=== PATIENT | female | born 1990 | race Caucasian/White ===

== ENCOUNTER 2016-11-18 18:40 | Emergency (ER) | payer SELFPAY ==
[2016-11-18 18:59] VITALS: BP 126/71
[2016-11-18] MEDS ORDERED: Penicillin VK TAB* 250 MG PO ONE (19:02)
[2016-11-18] MEDS ORDERED: Acetaminop/Codeine 30 MG TAB* 1 TAB (300 MG/30 MG) PO ONE (19:03)
--- NOTE | 2016-11-18 19:08 | UC ---
Dental HPI - HPI Summary HPI Summary: Patient woke up with swelling of the upper lip, has a broken and infected tooth. denies fever, it is painful. has dentist appointment on 11/24. - History of Current Complaint Chief Complaint: UCDentalProblem Stated Complaint: DENTAL/FACIAL SWELLING Time Seen by Provider: 11/18/16 18:57 Hx Obtained From: Patient Hx Last Menstrual Period: 11/14/16 ?: No Onset/Duration: Sudden Onset, Lasting Hours Severity: Severe Related History: Previous Dental Care on Same Tooth, Swelling - Allergies/Home Medications Allergies/Adverse Reactions: Allergies Allergy/AdvReac Type Severity Reaction Status Date / Time Cephalexin [From Keflex] Allergy Intermediate Hives Verified 11/18/16 18:52 Doxycycline Allergy Intermediate Hives Verified 11/18/16 18:52 Home Medications: Home Medications Ibuprofen TAB* [Advil TAB*] 400 mg PO ONCE 11/18/16 [History Confirmed 11/18/16] PMH/Surg Hx/FS Hx/Imm Hx Previously Healthy: Yes - Surgical History Surgical History: None Surgery Procedure, Year, and Place: ORAL - Family History Known Family History: Positive: Hypertension - Social History Alcohol Use: None Substance Use Type: None Smoking Status (MU): Light Every Day Tobacco Smoker Type: Cigarettes Amount Used/How Often: 1/2 PPD Length of Time of Smoking/Using Tobacco: 9 Years Have You Smoked in the Last Year: Yes Household Exposure Type: Cigarettes Review of Systems Constitutional: Negative Skin: Other - swollen lip Eyes: Negative ENT: Dental Pain, Sinus Congestion Respiratory: Negative Cardiovascular: Negative Gastrointestinal: Negative Genitourinary: Negative Motor: Negative Neurovascular: Negative Musculoskeletal: Negative Neurological: Negative Psychological: Negative All Other Systems Reviewed And Are Negative: Yes Physical Exam Triage Information Reviewed: Yes Appearance: Ill-Appearing, Pain Distress, Obese Vital Signs: Initial Vital Signs Temp 98.3 F 11/18/16 18:48 Pulse 87 11/18/16 18:48 Resp 18 11/18/16 18:48 BP 126/71 11/18/16 18:48 Pulse Ox 96 11/18/16 18:48 Vital Signs Reviewed: Yes Eye Exam: Normal ENT: Positive: Hearing grossly normal, Pharynx normal, Nasal congestion, TMs normal Dental: Positive: Gross Decay/Caries @, Dental Fracture @, Cellulitis @ Neck exam: Normal Neck: Positive: Supple, Nontender, No Lymphadenopathy Respiratory Exam: Normal Respiratory: Positive: Chest non-tender, Lungs clear, Normal breath sounds Cardiovascular Exam: Normal Cardiovascular: Positive: RRR, No Murmur, Pulses Normal Abdominal Exam: Normal Abdomen Description: Positive: Nontender, No Organomegaly, Soft Bowel Sounds: Positive: Present Musculoskeletal Exam: Normal Musculoskeletal: Positive: Strength Intact, ROM Intact, No Edema Neurological Exam: Normal Neurological: Positive: Alert, Muscle Tone Normal Psychological Exam: Normal Skin Exam: Normal Dental Complaint Course/Dx - Course Course Of Treatment: hx obtained, exam performed ,meds reviewed, abx and pain meds given, follow up as needed. - Differential Dx/Diagnosis Differential Diagnosis/Dx: Dental Caries, Fractured Tooth, Maxillary Trauma Provider Diagnoses: dental abcess,. fractured tooth. sinus pain Discharge - Discharge Plan Condition: Stable Disposition: HOME Prescriptions: Penicillin VK TAB* [Penicillin VK 250 mg Tab*] 500 mg PO QID #28 tab Patient Education Materials: Dental Abscess (ED) Additional Instructions: 1. take the medication as prescribed. 2. Use the tylneol with codeine at bedtime. 3. continue with the ibuprofen 4. gargel with salt water multiple times a day.
== END 2016-11-18 19:19 | disposition home or self-care (01) ==
LOC: UCCORT 18:40
DX: K04.7 Periapical abscess without sinus (principal); J32.9 Chronic sinusitis, unspecified; K03.81 Cracked tooth; F17.210 Nicotine dependence, cigarettes, uncomplicated; Z88.1 Allergy status to other antibiotic agents
CPT/HCPCS: 99212; A9270-GY; G0463

== ENCOUNTER 2017-07-08 19:35 | Emergency (ER) | payer OTHER ==
[2017-07-08] MEDS ORDERED: Naproxen TAB* 250 MG PO ONE (19:59)
[2017-07-08] MEDS ORDERED: Amoxicillin/Clavulanate TAB* 875 MG PO ONE (20:00)
[2017-07-08 20:01] VITALS: BP 147/83
--- NOTE | 2017-07-08 20:06 | UC ---
Dental HPI - HPI Summary HPI Summary: pt notes a hx of bad teeth. she has been seeing [facility] and is to have multiple extractions. tamiko, she broke a left upper back tooth and notes pain since with some mild swelling as well. no fever - History of Current Complaint Chief Complaint: UCDentalProblem Stated Complaint: DENTAL COMPLAINT Time Seen by Provider: 07/08/17 19:53 Hx Obtained From: Patient Hx Last Menstrual Period: 11/10/14 ?: No Onset/Duration: Sudden Onset Pain Intensity: 7 Aggravating Factor(s): Chewing Alleviating Factor(s): Nothing - Allergies/Home Medications Allergies/Adverse Reactions: Allergies Allergy/AdvReac Type Severity Reaction Status Date / Time cephalexin [From Keflex] Allergy Hives Verified 07/08/17 19:52 doxycycline Allergy Hives Verified 07/08/17 19:52 PMH/Surg Hx/FS Hx/Imm Hx - Additional Past Medical History Additional PMH: Lymphedema - Surgical History Surgical History: None Surgery Procedure, Year, and Place: ORAL - Family History Known Family History: Positive: Hypertension - Social History Lives: With Family Alcohol Use: None Substance Use Type: None Smoking Status (MU): Heavy Every Day Tobacco Smoker Type: Cigarettes Amount Used/How Often: 1 PPD Length of Time of Smoking/Using Tobacco: 9 Years Have You Smoked in the Last Year: Yes Household Exposure Type: Cigarettes Review of Systems Constitutional: Negative Skin: Negative Eyes: Negative ENT: Dental Pain Respiratory: Negative Cardiovascular: Negative Gastrointestinal: Negative Genitourinary: Negative Motor: Negative Neurovascular: Negative Musculoskeletal: Negative Neurological: Negative Psychological: Negative Is Patient Immunocompromised?: No All Other Systems Reviewed And Are Negative: Yes Physical Exam Triage Information Reviewed: Yes Appearance: Well-Appearing Vital Signs: Initial Vital Signs Temp 98.5 F 07/08/17 19:52 Pulse 99 07/08/17 19:52 Resp 20 07/08/17 19:52 BP 147/83 07/08/17 19:52 Pulse Ox 95 07/08/17 19:52 Vital Signs Reviewed: Yes Eyes: Positive: Conjunctiva Clear ENT: Positive: Normal ENT inspection Dental: Positive: Gross Decay/Caries @ - multiple teeth. the L upper anterior molar is very tender and has swelling to the gum but is not fluctuant.. Negative: Abscess @ Neck: Positive: Supple, Nontender, No Lymphadenopathy Respiratory: Positive: Lungs clear, Normal breath sounds Cardiovascular: Positive: RRR, No Murmur Abdomen Description: Positive: Nontender, No Organomegaly, Soft Bowel Sounds: Positive: Present Musculoskeletal: Positive: ROM Intact, Edema @ Neurological: Positive: Alert Psychological: Positive: Age Appropriate Behavior Skin Exam: Normal Dental Complaint Course/Dx - Course Course Of Treatment: dental caries, pain and infection. will tx nsaid and augmentin. pt notes keflex allergy but has taken pcn class since then with no reation. - Differential Dx/Diagnosis Provider Diagnoses: Dental caries. Dental infection Discharge - Discharge Plan Condition: Stable Disposition: HOME Prescriptions: Amoxicillin/Clavulanate TAB* [Augmentin TAB 875*] 875 mg PO BID #20 tab Naproxen [Naprosyn] 500 mg PO BID #14 tablet Patient Education Materials: Toothache (ED), Dental Abscess (ED) Referrals: Cat Sepulveda MD [Primary Care Provider] - If Needed Additional Instructions: FOLLOW UP WITH YOUR DENTIST AT [facility], NEXT AVAILABLE APPOINTMENT.
== END 2017-07-08 20:17 | disposition home or self-care (01) ==
LOC: UCCORT 19:35
DX: K02.9 Dental caries, unspecified (principal); K04.7 Periapical abscess without sinus; Z88.1 Allergy status to other antibiotic agents; F17.210 Nicotine dependence, cigarettes, uncomplicated
CPT/HCPCS: 99212; A9270-GY; G0463

== ENCOUNTER 2019-01-24 18:14 | Emergency (ER) | payer OTHER ==
[2019-01-24 18:21] VITALS: BP 146/92
--- NOTE | 2019-01-24 18:28 | UC ---
Abdominal Pain Female HPI - HPI Summary HPI Summary: RLQ ABD PAIN LAST COUPLE DAYS; PROGRESSIVELY GETTING WORSE TODAY. DENIES N/V/D. NO MEASURED FEVER. SAW PCP LAST SUNDAY FOR SORE THROAT; STREP TEST AND THROAT CULTURE NEGATIVE. NO MEDS TAKEN FOR STOMACH PAIN. CURRENTLY ON COUMADIN. STILL HAS APPENDIX. Pain increases with movement. - History of Current Complaint Chief Complaint: UCGI Stated Complaint: RIGHT SIDE ABDOMINAL PAIN Time Seen by Provider: 01/24/19 18:23 Hx Obtained From: Patient Hx Last Menstrual Period: 01/23/19 ?: No Onset/Duration: Gradual Onset, Lasting Days Severity Initially: Mild Severity Currently: Severe Pain Intensity: 7 Location: Discrete At: RLQ Radiates: No Aggravating Factor(s): Movement, Deep Breaths Allergies/Adverse Reactions: Allergies Allergy/AdvReac Type Severity Reaction Status Date / Time bupropion Allergy Rash Verified 01/24/19 18:17 cephalexin [From Keflex] Allergy Hives Verified 01/24/19 18:17 doxycycline Allergy Hives Verified 01/24/19 18:17 Home Medications: Home Medications Furosemide TAB* [Lasix TAB*] 40 mg PO BID 01/24/19 [History Confirmed 01/24/19] Iron 1 tab DAILY 01/24/19 [History Confirmed 01/24/19] Warfarin TAB(*) [Coumadin TAB(*)] 1 tab EVERY OTHER DAY 01/24/19 [History Confirmed 01/24/19] PMH/Surg Hx/FS Hx/Imm Hx Previously Healthy: Yes - Surgical History Surgical History: Yes Surgery Procedure, Year, and Place: ORAL. COLONSCOPY; POLYPS REMOVED CHILD - Family History Known Family History: Positive: Hypertension - Social History Alcohol Use: Rare Substance Use Type: None Smoking Status (MU): Heavy Every Day Tobacco Smoker Type: Cigarettes Amount Used/How Often: 1 PPD Length of Time of Smoking/Using Tobacco: 9 Years Have You Smoked in the Last Year: Yes Household Exposure Type: Cigarettes Review of Systems All Other Systems Reviewed And Are Negative: Yes Gastrointestinal: Positive: Abdominal Pain, Nausea Is Patient Immunocompromised?: No Physical Exam Triage Information Reviewed: Yes Appearance: Ill-Appearing, Pain Distress, Obese Vital Signs: Initial Vital Signs Temp 99 F 01/24/19 18:17 Pulse 84 01/24/19 18:17 Resp 18 01/24/19 18:17 BP 146/92 01/24/19 18:17 Pulse Ox 99 01/24/19 18:17 Vital Signs Reviewed: Yes Eye Exam: Normal ENT Exam: Normal Dental Exam: Normal Neck exam: Normal Respiratory Exam: Normal Cardiovascular Exam: Normal Abdomen Description: Positive: CVA Tenderness (R) - neg, CVA Tenderness (L) - neg, Guarding, Peritoneal Signs - pain increases with prone position, standing up straight and walking Bowel Sounds: Positive: Present Musculoskeletal Exam: Normal Neurological Exam: Normal Psychological Exam: Normal Skin Exam: Normal Abd Pain Female Course/Dx - Course Course Of Treatment: hx obtained, exam performed ,meds reviewed, discussed reporting to ER to rule out appendicitis. - Differential Dx/Diagnosis Provider Diagnosis: Acute abdominal pain in right lower quadrant Discharge ED - Sign-Out/Discharge Documenting (check all that apply): Patient Departure All imaging exams completed and their final reports reviewed: No Studies - Discharge Plan Condition: Stable Disposition: HOME Patient Education Materials: Acute Abdominal Pain (ED) Referrals: Sha Tobias DO [Primary Care Provider] - Additional Instructions: 1. report for higher level of care due to acute abdominal pain. - Billing Disposition and Condition Condition: STABLE Disposition: Home
--- OUTSIDE RECORDS SUMMARY | 2019-01-24 18:36 | XMS REPORT | Summary of Care ---
:1990 Author Organization [facility] Address [address] [place] [address] Care Team Providers Name Role Phone Sha Tobias Primary Care Provider Reason for Visit Reason Comments URI incresed sore throat and cough and feels like chest tight and someone sitting on;denies fevers s/s started yesturday Encounter Details Date Type Department Care Team Description 01/16/2019 Office Visit [facility] Sha Tobias, Exacerbation of asthma, unspecified asthma severity, unspecified whether persistent (Primary Dx); Practice [address] Sore throat [address] [place] [address] [place] [address] [phone] Allergies Active Allergy Reactions Severity Noted Date Comments Doxycycline Hives 01/31/2016 Keflex Hives 01/31/2016 Bupropion Rash Low 08/08/2018 Small red itchy rash bilat hands documented as of this encounter (statuses as of 01/16/2019) Medications Medication Sig Dispensed Refills Start Date End Date Status albuterol HFA Take 2 Puffs by 1 Inhaler 5 02/21/2018 Active (VENTOLIN) 108 (90 inhalation EVERY Base) MCG/ACT FOUR HOURS Inhalation Aero Soln NEEDED (wheezing). Acetaminophen (ACETAMIN Take by mouth. 0 Active PO) Polyethylene Glycol Take by mouth 0 Active 3350 (MIRALAX PO) NEEDED. Sennosides (SENNA) 8.6 Take by mouth 0 Active MG Oral Cap NEEDED. warfarin (COUMADIN) 10 Take 1 Tab by 90 Tab 2 06/20/2018 Active MG Oral TabIndications: mouth DAILY. As Pulmonary embolus, directed right (HCC) ferrous sulfate 325 (65 Take 1 Tab by 60 Tab 1 09/26/2018 Active Fe) MG Oral Tab mouth DAILY. furosemide (LASIX) 40 Take 1 Tab by 60 Tab 1 09/26/2018 Active MG Oral Tab mouth TWICE DAILY. nicotine transdermal Place 1 Patch 42 Patch 0 10/22/2018 Active patch-daily (NICODERM) onto skin DAILY. 21 MG/24HR Transdermal PATCH 24 HRIndications: Smoking trying to quit Cholecalciferol Take by mouth. 0 Active (VITAMIN D PO) mupirocin (BACTROBAN) 2 Twice daily on 1 Tube 0 12/18/2018 Active % Apply externally affected back of OintmentIndications: neck area for 1 Cellulitis, unspecified week cellulitis site predniSONE (DELTASONE) Take 1 Tab by 18 Tab 0 01/16/2019 Active 20 MG Oral mouth TabIndications: DIRECTED. 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 03/05/2018 Overview: Managed by: patient to establish with [facility] 03/06/18 Referring Provider: Ashu Indication: PE, dx 02/22/18 Target Range: 2.0-3.0 Duration: not indicated Initial Referral: 03/05/18 Initial ACS Ordes: 03/05/18 Polycystic ovarian disease Benign essential hypertension Asthma Pulmonary embolism Overview: on coumadin Lymphedema documented as of this encounter (statuses as of 01/16/2019) Immunizations Name Administration Dates Next Due Influenza (IM) Preservative Free 03/01/2017, 01/31/2016 documented as of this encounter Social History Tobacco Use Types Packs/Day Years Used Date Current Every Day Smoker Cigarettes 0.3 Smokeless Tobacco: Never Used Alcohol Use Drinks/Week oz/Week Comments No 0 Standard drinks or equivalent 0.0 Sex Assigned at Date Recorded Not on file Job Start Date Occupation Industry Not on file Not on file Not on file Travel History Travel Start Travel End No recent travel history available. documented as of this encounter Last Filed Vital Signs Vital Sign Reading Time Taken Comments Blood Pressure 138/64 01/16/2019 10:49 AM EDT Pulse 104 01/16/2019 10:49 AM EDT Temperature 37.8 01/16/2019 10:49 AM C (100 EDT F) Respiratory Rate - - Oxygen Saturation 95% 01/16/2019 10:49 AM EDT Inhaled Oxygen Concentration - - Weight 214.8 kg (473 lb 9.6 oz) 01/16/2019 10:49 AM EDT Height 171.5 cm (5' 7.5") 01/16/2019 10:49 AM EDT Body Mass Index 73.08 01/16/2019 10:49 AM EDT documented in this encounter Patient Instructions Patient InstructionsSha Tobias DO - 01/16/2019 10:40 AM EDTPrednisone 20 mg tablets: 3 tabs a day for 3 days then 2 tabs a day for 3 days then 1 tab a day for 3 days Sore throat: salt water gargle and honey Will send for culture Keep using rescue inhaler for cough, wheeze and chest tightness or shortness of breath documented in this encounter Progress Notes Sha Tobias DO - 01/16/2019 10:40 AM EDT PATIENT: Beth Arciniega : 1990 DATE OF SERVICE: 01/16/2019 CHIEF COMPLAINT: Chief Complaint Patient presents with URI incresed sore throat and cough and feels like chest tight and someone sitting on;denies fevers s/sstarted yesturday Subjective HISTORY OF PRESENT ILLNESS: Beth Arciniega is a 28-y.o. female. HPI Yesterday sore throat and then cough (dry), wheezing and chest tightness No fevers No chills Has asthma hx Albuterol helped that she tried for wheeze Past Medical History: Diagnosis Date Asthma Benign essential hypertension Lymphedema Morbid obesity (HCC) Polycystic ovarian disease Pulmonary embolism (HCC) on coumadin Family History Adopted: Yes Current Outpatient Medications Medication Sig Acetaminophen (ACETAMIN PO) Take by mouth. albuterol HFA (VENTOLIN) 108 (90 Base) MCG/ACT Inhalation Aero Soln Take 2 Puffs by inhalation EVERY FOUR HOURS NEEDED (wheezing). Cholecalciferol (VITAMIN D PO) Take by mouth. ferrous sulfate 325 (65 Fe) MG Oral Tab Take 1 Tab by mouth DAILY. furosemide (LASIX) 40 MG Oral Tab Take 1 Tab by mouth TWICE DAILY. mupirocin (BACTROBAN) 2 % Apply externally Ointment Twice daily on affected back of neck areafor 1 week nicotine transdermal patch-daily (NICODERM) 21 MG/24HR Transdermal PATCH [address] 1 Patch onto skin DAILY. Polyethylene Glycol 3350 (MIRALAX PO) Take by mouth NEEDED. predniSONE (DELTASONE) 20 MG Oral Tab Take 1 Tab by mouth DIRECTED. 3 tabs a day for 3 days then 2 tabs a day for 3 days then 1 tab a day for 3 days Sennosides (SENNA) 8.6 MG Oral Cap Take by mouth NEEDED. warfarin (COUMADIN) 10 MG Oral Tab Take 1 Tab by mouth DAILY. As directed No current facility-administered medications for this visit. Allergies Allergen Reactions Doxycycline Hives Keflex Hives Wellbutrin [Bupropion] Rash Small red itchy rash bilat hands Social History Socioeconomic History Marital status: Single Spouse name: Not on file Number of children: Not on file Years of education: Not on file Highest education level: Not on file Occupational History Not on file Social Needs Financial resource strain: Not on file Food insecurity: Worry: Not on file Inability: Not on file Transportation needs: Medical: Not on file Non-medical: Not on file Tobacco Use Smoking status: Current Every Day Smoker Packs/day: 0.30 Types: Cigarettes Smokeless tobacco: Never Used Substance and Sexual Activity Alcohol use: No Alcohol/week: 0.0 standard drinks Drug use: No Sexual activity: Yes Partners: Male Lifestyle Physical activity: Days per week: Not on file Minutes per session: Not on file Stress: Not on file Relationships Social connections: Talks on phone: Not on file Gets together: Not on file Attends protestant service: Not on file Active member of club or organization: Not on file Attends meetings of clubs or organizations: Not on file Relationship status: Not on file Intimate partner violence: Fear of current or ex partner: Not on file Emotionally abused: Not on file Physically abused: Not on file Forced sexual activity: Not on file Other Topics Concern Back Care Not Asked Bike Helmet Not Asked Blood Transfusions No Caffeine Concern Not Asked Exercise No Hobby Hazards Not Asked International Travel Not Asked Service Not Asked Occupational Exposure Not Asked Seat Belt Not Asked Self-Exams Not Asked Sleep Concern Not Asked Special Diet Not Asked Stress Concern Not Asked Weight Concern Not Asked Social History Narrative Not working currently REVIEW OF SYSTEMS: Review of Systems Constitutional: Negative for diaphoresis. Cardiovascular: Negative for chest pain. Neurological: Negative for headaches. Objective PHYSICAL EXAM: VITALS: BP 138/64 (BP Location: Left arm, Patient Position: Sitting) | Pulse 104 | Temp 100 F(37.8 C) | Ht 5' 7.5" (1.715 m) | Wt (!) 473 lb 9.6 oz (214.8 kg) | SpO2 95% | BMI 73.08 kg/m Body mass index is 73.08 kg/m . Physical Exam Constitutional: Appearance: Normal appearance. She is not toxic-appearing or diaphoretic. HENT: Head: Normocephalic and atraumatic. Right Ear: Tympanic membrane normal. Left Ear: Tympanic membrane normal. Mouth/Throat: Comments: Erythemas of pharynx Eyes: General: No scleral icterus. Right eye: No discharge. Left eye: No discharge. Conjunctiva/sclera: Conjunctivae normal. Neck: Musculoskeletal: Normal range of motion and neck supple. Cardiovascular: Rate and Rhythm: Normal rate and regular rhythm. Pulmonary: Effort: Pulmonary effort is normal. Breath sounds: Wheezing (expiratory) present. No rales. Neurological: Mental Status: She is alert. ASSESSMENT / IMPRESSION: ICD-9-CM ICD-10-CM 1. Exacerbation of asthma, unspecified asthma severity, unspecified whether persistent 493.92 J45.901 predniSONE (DELTASONE) 20 MG Oral Tab 2. Sore throat 462 J02.9 STREP A ANTIGEN (AMB POCT) THROAT STREP SCREEN CULTURE THROAT STREP SCREEN CULTURE Plan Rapid strep negative. Will send for culture to make sure not missing step throat Asthma flare for certain. Likely triggered by infection pharyngitis Patient Instructions Prednisone 20 mg tablets: 3 tabs a day for 3 days then 2 tabs a day for 3 days then 1 tab a day for 3 days Sore throat: salt water gargle and honey Will send for culture Keep using rescue inhaler for cough, wheeze and chest tightness or shortness of breath Author: Sha Tobias DO 01/16/2019 12:56 documented in this encounter Plan of Treatment Date Type Specialty Care Team Description 01/29/2019 AntiCoag Anticoagulation Name Type Priority Associated Diagnoses Date/Time THROAT STREP SCREEN Lab Routine Sore throat 01/16/2019 11:15 AM EDT CULTURE Name Type Priority Associated Diagnoses Order Schedule THROAT STREP SCREEN Lab Routine Sore throat 1 Occurrences starting CULTURE 01/16/2019 until 07/15/2019 Health Maintenance Due Date Last Done Comments PNEUMOCOCCAL 0-64 YRS (1 of 1 08/03/1995 - PPSV23) INFLUENZA VACCINE (#1) 2018 03/01/2017, 01/31/2016 DEPRESSION SCREENING 10/23/2019 10/22/2018 PAP SMEAR 03/29/2021 03/29/2018 HPV IMMUNIZATION SERIES Aged Out No longer eligible based on patient's age to complete this topic MENINGOCOCCAL VACCINE IMM Aged Out No longer eligible based on patient's age to complete this topic documented as of this encounter Goals Goal Patient Goal Associated Recent Patient-Stated? Author Type Problems Progress Blood Pressure Blood Pressure 138/64 No Randy, < 140/90 (01/16/2019 Helen, 10:49 AM EDT) JUAN J Note: This is an individualized treatment (blood pressure) goal for Beth Arciniega: Displayed above (on the left) is your goal for blood pressure control. Your most recent blood pressure is also shown above, on the right. You should try to achieve blood pressures that are lower than your goal listed above (on the left). Weight increase vs. 18 mo min CHF 0 (01/16/2019 10:49 AM EDT) No Sha Tobias DO (lbs) < 5 Note: This is an individualized treatment (congestive heart failure, CHF) goal for Beth Arciniega: Displayed above (on the right) is how many pounds you are in excess of your lowest weight over the past 18 months. Note that lower numbers are better. Excessive weight gain often indicates fluid reten tion and worsening heart failure. You should contact your doctor immediately if the above number is too high (above your goal, the number on the left). Weight loss vs. 18 mo Lifestyle 50.4 (01/16/2019 10:49 AM No Helen Padilla PA-C max (lbs) >= 10 EDT) Note: This is an individualized lifestyle goal for Beth Arciniega: Your body mass index (BMI) is more than 30. You should lose weight. A reasonable starting goal is to lose 10 pounds. Displayed above is how many pounds you have lost thus far towards your 10 pound weight loss goal. Consume a [id number] diet Lifestyle No Sha Tobias DO Note: This is an individualized lifestyle goal for Beth Arciniega: Please do not add additional salt to your food. Additional salt may lead to fluid retention and worsen your congestive heart failure. Take all prescribed medications as Self-management No Helen Padilla PA-C directed Note: This is an individualized self-management goal for Beth Arciniega: Please take all prescribed medications as directed. 1. Do not skip doses. If you cannot afford your medications, talk with your doctor. 2. Use a pill reminder system such as a pill box if needed. Your pharmacist can help you with this. 3. Contact your Pharmacy 5 days before your medication runs out. If you cannot take your medications for any reasons, talk with your doctor. 4. Please bring all of your medication bottles and inhalers (or a list of all your medications/inhalers) with you to every visit. Potential barriers to meeting all of your care plan goals will continue to be addressed on an ongoing basis. Check your weight daily Self-management No Sha Tobias DO Note: This is an individualized self-management goal for Beth Arciniega: Please check your weight daily. Refer to the accompanying CHF treatment goal and call your doctor immediately for further instructions on how to respond to unexpected weight gain. documented as of this encounter Procedures Procedure Name Priority Date/Time Associated Diagnosis Comments STREP A ANTIGEN Routine 01/16/2019 11:15 AM Sore throat Results for this (AMB POCT) EDT procedure are in the results section. documented in this encounter Results STREP A ANTIGEN (AMB POCT) (01/16/2019 11:15 AM EDT) Strep A Antigen Negative Negative [facility] [place] (POCT) POCT Control Line Present Present [facility] POCT Strep A Antigen Yes, Sent for [facility] Confirm (POCT) Confirmation POCT Lot Number [id number] [facility] POCT Expiration Date 08/2019 [facility] POCT Specimen Performing Organization Address City/State/[place] Phone Number [facility] [address] [place] [address] documented in this encounter Visit Diagnoses Diagnosis Exacerbation of asthma, unspecified asthma severity, unspecified whether persistent - Primary Sore throat Acute pharyngitis documented in this encounter Insurance Payer Benefit Plan / Subscriber ID Effective Dates Phone Address Type Group [facility] xxxxxxxxxxx 2018-Present [employer] Guarantor Name Account Type Relation to Date of Phone Billing Patient Address Beth Arciniega Personal/Family 1990 [address] [phone] [place], [place] (Work) [address] documented as of this encounter
--- OUTSIDE RECORDS SUMMARY | 2019-01-24 18:36 | XMS REPORT | Continuity of Care Document ---
:1990 External Reference #:[id number] Author Name Howard Levy (transmitted by agent of provider Shiela Burger) Address [address], [place] [address] Care Team Providers Name Role Phone Sha Tobias D.O. - Family Medicine Care Team Information Log Grader [phone] Problems Active Problems Provider Date Disturbance in sleep behavior Hansa Michaud MD Onset: 06/02/2015 Morbid obesity Hansa Michaud MD Onset: 06/02/2015 Tobacco user Hansa Michaud MD Onset: 06/02/2015 Social History Type Date Description Comments Sex Unknown Tobacco Use Start: Unknown Light tobacco smoker (10 or fewer cigarettes/day) Smoking Status Reviewed: 01/03/19 Light tobacco smoker (10 or fewer cigarettes/day) ETOH Use Denies alcohol use Tobacco Use Start: Unknown Patient is a current 5-6/day , working smoker, smokes every on quitting day Recreational Drug Use Denies Drug Use Exercise Type/Frequency Exercises sporadically Allergies, Adverse Reactions, Alerts Active Allergies Reaction Severity Comments Date Keflex 06/02/2015 Doxycycline 06/02/2015 Bupropion Hives 01/03/2019 Inactive Allergies NKDA 06/02/2015 Medications Active Medications SIG Qnty Indications Ordering Provider Date Warfarin Sodium 1 tab by mouth 30tabs Unknown 10mg every day Tablets Iron High-Potency 1 by mouth 2 Unknown 325mg times a day Tablets Furosemide 1 by mouth 30tabs Unknown 40mg Tablets twice a day Senna-Lax 1 by mouth as Unknown 8.6mg Tablets needed Mirapex as needed Unknown Albuterol Sulfate HFA 2 puffs every 4 Unknown hours as needed 108(90Base) mcg/Act Aerosol Acetaminophen PM Extra as needed Unknown Strength Bupropion Hydrochloride 1 by mouth Unknown ER (XL) every day 150mg Tablets ER 24HR Vitamin D 1 by mouth Unknown 2000Unit Capsules every day Nicotine Step 1 1 patch to dry Unknown 21mg/24HR skin every day Patches 24HR Medications Administered in Office Medication SIG Qnty Indications Ordering Provider Date Records Fee Hanas Michaud MD 11/18/2018 Injection Records Fee Hansa Michaud MD 10/14/2018 Injection Immunizations CPT Code Status Date Vaccine Lot # [id number] Given 06/02/2015 Fluvirin Im 3Yrs And Older Vital Signs Date Vital Result Comment 01/03/2019 12:45pm Height 68 inches 5'8" Weight 482.00 lb Heart Rate 76 /min BP Systolic 139 mmHg BP Diastolic 81 mmHg O2 % BldC Oximetry 98 % BMI (Body Mass Index) 73.3 kg/m2 Last Menstrual Period [id number] 07/29/2018 10:48am Height 68 inches 5'8" Weight 490.19 lb Heart Rate 82 /min BP Systolic Sitting 122 mmHg large adult cuff left wrist BP Diastolic Sitting 90 mmHg large adult cuff left wrist O2 % BldC Oximetry 94 % BMI (Body Mass Index) 74.5 kg/m2 Results Description No Information Available Procedures Date Code Description Status 09/05/2018 12699 Polysomnography Sleep Staging 4+ Parameters W/Cpap Completed 07/09/2018 43128 Polysomnography Sleep Staging 4+ Parameters W/Cpap Completed Medical Devices Description No Information Available Encounters Type Date Location Provider Dx Diagnosis Office Visit 07/29/2018 [facility] Annabelle Goff, G47.33 Obstructive sleep 11:[facility], RN, STAGE DIRECTOR-BC apnea (adult) [employer] (pediatric) R09.02 Hypoxemia E66.2 Morbid (severe) obesity with alveolar hypoventilation Z68.45 Body mass index (BMI) 70 or greater, adult F17.210 Nicotine dependence, cigarettes, uncomplicated Assessments Date Code Description Provider 01/03/2019 N92.1 Excessive and frequent menstruation ENID Levy-Cde with irregular cycle 01/03/2019 E66.01 Morbid (severe) obesity due to Howard Levy excess calories 09/05/2018 G47.33 Obstructive sleep apnea (adult) Hansa Michaud MD (pediatric) 07/29/2018 G47.33 Obstructive sleep apnea (adult) Annabelle Goff DNP, RN, (pediatric) [facility] 07/29/2018 R09.02 Hypoxemia Annabelle Goff DNP, RN, [facility]- 07/29/2018 E66.2 Morbid (severe) obesity with Annabelle Goff DNP RN, alveolar hypoventilation [facility]- 07/29/2018 Z68.45 Body mass index (BMI) 70 or greater, Annabelle Goff DNP , RN, adult [facility]- 07/29/2018 F17.210 Nicotine dependence, cigarettes, Annabelle Goff DNP RN , uncomplicated [facility]- 07/09/2018 G47.33 Obstructive sleep apnea (adult) Hansa Michaud MD (pediatric) Plan of Treatment Future Appointment(s):01/20/2019 1:30 pm - Howard Levy at [facility]02/05/2019 2:00 pm - Annabelle Goff DNP RN, [facility]- at [facility]01/03/2019 - Hima LevyeN92.1 Excessive and frequent menstruation with irregular expfqT74.01 Morbid (severe) obesity due to excess calories Functional Status Description No Information Available Mental Status Description No Information Available Referrals Description No Information Available
--- OUTSIDE RECORDS SUMMARY | 2019-01-24 18:36 | XMS REPORT | Continuity of Care Document ---
:1990 External Reference #:[id number] Author Name Celine Naranjo MD (transmitted by agent of provider Carly Chavez) Address [address] [place] [address] Care Team Providers Name Role Phone Kay Silver - Internal Care Team Information Individual Small Group Instructor Medicine Sha Tobias MD Care Team Information Individual Small Group Instructor [phone] Problems Description No Information Available Social History Type Date Description Comments Sex Unknown Cigarette Use Current Cigarette Does not smoke Smoker while wearing patch. ETOH Use Denies alcohol use Recreational Drug Use Denies Drug Use Tobacco Use Start: Unknown Patient is a current smoker, smokes some days Smoking Status Reviewed: 12/18/18 Patient is a current smoker, smokes some days Exercise Type/Frequency Exercises sporadically Seat Belt/Car Seat Always uses seat belt Allergies, Adverse Reactions, Alerts Active Allergies Reaction Severity Comments Date Keflex 12/18/2018 Doxycycline 12/18/2018 Bupropion 12/18/2018 Medications Active Medications SIG Qnty Indications Ordering Date Provider Warfarin Sodium take 1 tablet by Unknown 1mg mouth daily or as Tablets directed Iron 1 by mouth every day Unknown 325(65Fe) mg Tablets Furosemide take one tablet by Unknown 20mg Tablets mouth every day if needed for leg swelling Vitamin D3 take one tablet by Unknown 1000Unit mouth daily. Capsules Nicotine 1 patch per day x 4 Unknown 7mg/24HR weeks Patches 24HR Acetaminophen 1-2 by mouth every 4 Unknown 500mg hours as needed for Tablets pain or fever Senna-Lax take two tablets by Unknown 8.6mg Tablets mouth twice a day as needed for constipation Miralax 17 gm every day Unknown 3350NF Powder mixed w/ 8 oz water/juice Albuterol Sulfate 1 vial via nebulizer Unknown 4 times daily as (2.5mg/3ML) 0.083% needed Nebulizer Immunizations Description No Information Available Vital Signs Date Vital Result Comment 12/18/2018 11:32am BP Systolic 164 mmHg BP Diastolic 104 mmHg Height 65.5 inches 5'5.50" Weight 482.00 lb BMI (Body Mass Index) 79.0 kg/m2 Last Menstrual Period [id number] Results Description No Information Available Procedures Date Code Description Status 04/23/2005 90176142 Colonoscopy Completed Medical Devices Description No Information Available Encounters Description No Information Available Assessments Description No Information Available Plan of Treatment No Information Available Functional Status Description No Information Available Mental Status Description No Information Available Referrals Description No Information Available
--- OUTSIDE RECORDS SUMMARY | 2019-01-24 18:36 | XMS REPORT | Continuity of Care Document ---
:1990 External Reference #:[id number] Author Name Celine Naranjo MD Address [address] [place] [address] Care Team Providers Name Role Phone Kay Silver - Internal Care Team Information Film Process Operator Medicine Sha Tobias MD Care Team Information Film Process Operator [phone] Problems Description No Information Available Social History [...] Mass Index) 79.0 kg/m2 Last Menstrual Period [id number] 0 Results Description No Information Available Procedures Date Code Description Status 04/23/2005 [id number] Colonoscopy Completed Medical Devices Description No Information Available Encounters Type Date Location Provider Dx Diagnosis Office Visit 12/18/2018 [facility] Celine Naranjo MD N93.9 Abnormal uterine and 11:30a vaginal bleeding, unspecified Z86.711 Personal history of pulmonary embolism Z68.45 Body mass index (BMI) 70 or greater, adult Assessments Date Code Description Provider 12/18/2018 N93.9 Abnormal uterine and vaginal bleeding, Celine Naranjo MD unspecified 12/18/2018 Z86.711 Personal history of pulmonary embolism Celine Naranjo MD 12/18/2018 Z68.45 Body mass index (BMI) 70 or greater, adult Celine Naranjo MD Plan of Treatment No Information Available Functional Status Description No Information Available Mental Status Description No Information Available Referrals Description No Information Available
--- OUTSIDE RECORDS SUMMARY | 2019-01-24 18:36 | XMS REPORT | Summary of Care ---
:1990 Author Organization [facility] Address [address] [place] [address] Care Team Providers Name Role Phone Sha Tobias DO Primary Care Provider Reason for Visit Reason Comments Derm Problem hx of scratch on back of neck area couple mnths ago, starps from cpap have rubbed on it and reopened area with some drainage per patient Assessment For Bariatric Surgery need letter of support of bariatric surgery Encounter Details Date Type Department Care Team Description 12/18/2018 Office Visit [facility] Sha Tobias DO Cellulitis, Practice [address] unspecified cellulitis [address] [place] [address] site (Primary Dx) [place] [address] [phone] Allergies Active Allergy Reactions Severity Noted Date Comments Doxycycline Hives 01/31/2016 Keflex Hives 01/31/2016 Bupropion Rash Low 08/08/2018 Small red itchy rash bilat hands documented as of this encounter (statuses as of 12/18/2018) Medications Medication Sig Dispensed Refills Start Date [...] for 1 Cellulitis, unspecified week cellulitis site Clindamycin HCl 300 MG Take 1 Cap by 15 Cap 0 12/18/2018 Active Oral CapIndications: mouth THREE TIMES Cellulitis, unspecified DAILY. 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 03/05/2018 Overview: Managed by: patient to establish with [facility] 03/06/18 Referring Provider: Ashu Indication: PE, dx 02/22/18 Target Range: 2.0-3.0 Duration: not indicated Initial Referral: 03/05/18 Initial [facility] Ordes: 03/05/18 Polycystic ovarian disease Benign essential hypertension Asthma Pulmonary embolism Overview: on coumadin Lymphedema documented as of this encounter (statuses as of 12/18/2018) Immunizations Name Administration Dates Next Due Influenza [...] Sign Reading Time Taken Comments Blood Pressure 134/68 12/18/2018 2:46 PM EDT Pulse 82 12/18/2018 2:46 PM EDT Temperature - - Respiratory Rate - - Oxygen Saturation 97% 12/18/2018 2:46 PM EDT Inhaled Oxygen Concentration - - Weight 219.1 kg (483 lb) 12/18/2018 2:46 PM EDT Height 171.5 cm (5' 7.5") 12/18/2018 2:46 PM EDT Body Mass Index 74.53 12/18/2018 2:46 PM EDT documented in this encounter Progress Notes Sha Tobias, DO - 12/18/2018 2:40 PM EDT PATIENT: Beth Arciniega : 1990 DATE OF SERVICE: 12/18/2018 CHIEF COMPLAINT: Chief Complaint Patient presents with Derm Problem hx of scratch on back of neck area couple mnths ago, starps from cpap have rubbed on it and reopened area with some drainage per patient Assessment For Bariatric Surgery need letter of support of bariatric surgery Subjective HISTORY OF PRESENT ILLNESS: Beth Arciniega is a 28-y.o. female. HPI A month ago accidentally friend scratched her back of neck Since then not healing Few days ago painful and oozing No itch No fevers Past Medical History: Diagnosis Date Asthma Benign essential hypertension Lymphedema Morbid obesity (HCC) Polycystic ovarian disease Pulmonary embolism (HCC) on coumadin Family History Adopted: Yes Current Outpatient Medications Medication Sig Acetaminophen (ACETAMIN PO) Take by mouth. albuterol HFA (VENTOLIN) 108 (90 Base) MCG/ACT Inhalation Aero Soln Take 2 Puffs by inhalation EVERY FOUR HOURS NEEDED (wheezing). Cholecalciferol (VITAMIN D PO) Take by mouth. Clindamycin HCl 300 MG Oral Cap Take 1 Cap by mouth THREE TIMES DAILY. ferrous sulfate 325 (65 Fe) MG Oral [...] 3350 (MIRALAX PO) Take by mouth NEEDED. Sennosides (SENNA) 8.6 MG Oral Cap Take [...] file Gets together: Not on file Attends buddhist service: Not on file Active member of [...] SYSTEMS: Review of Systems Constitutional: Negative for chills. Neurological: Negative for dizziness. Objective PHYSICAL EXAM: VITALS: BP 134/68 (BP Location: Left arm, Patient Position: Sitting) | Pulse 82 | Ht 5' 7.5" (1.715 m) | Wt (!) 483 lb (219.1 kg) | SpO2 97% | BMI 74.53 kg/m Body mass index is 74.53 kg/m. Physical Exam Constitutional: She appears well-developed and well-nourished. No distress. obese Skin: She is not diaphoretic. Posterior neck base fold (due to obesity) has small area of redness, induration and warmness. ASSESSMENT / IMPRESSION: ICD-9-CM ICD-10-CM 1. Cellulitis, unspecified cellulitis site 682.9 L03.90 mupirocin (BACTROBAN) 2 % Apply externally Ointment Clindamycin HCl 300 MG Oral Cap Plan Mild cellulitis. Due to allergy with cephalo and doxy, my choices are limited Short course of clinda. Per lexicomp no interaction with coumadin for clinda. Call if not better Author: Sha Tobias DO 12/18/2018 16:30 documented in this encounter Plan of Treatment Date Type Specialty Care Team Description 01/01/2019 AntiCoag Anticoagulation Health Maintenance Due Date Last Done Comments PNEUMOCOCCAL 0-64 YRS (1 of 1 08/03/1995 - PPSV23) INFLUENZA VACCINE (#1) 2018 02/28/2018, 03/01/2017, 01/31/2016 DEPRESSION SCREENING 10/23/2019 10/22/2018 PAP SMEAR 03/29/2021 03/29/2018 HPV IMMUNIZATION SERIES Aged Out No longer eligible based on patient's age to complete this topic MENINGOCOCCAL VACCINE IMM Aged Out No longer eligible based on patient's age to complete this topic documented as of this encounter Goals Goal Patient Goal Associated Recent Patient-Stated? Author Type Problems Progress Blood Pressure Blood Pressure 134/68 No Randy, < 140/90 (12/18/2018 Helen, 2:46 PM EDT) JUAN J Note: This is an individualized treatment (blood pressure) goal for Beth Arciniega: Displayed above (on the left) is your goal for blood pressure control. Your most recent blood pressure is also shown above, on the right. You should try to achieve blood pressures that are lower than your goal listed above (on the left). Weight loss vs. 18 mo Lifestyle 41 (12/18/2018 2:46 PM No [place], Helen, PA-C max (lbs) >= 10 EDT) Note: This is an individualized lifestyle goal for Beth Arciniega: Your body mass index (BMI) is more than 30. You should lose weight. A reasonable starting goal is to lose 10 pounds. Displayed above is how many pounds you have lost thus far towards your 10 pound weight loss goal. Take all prescribed medications as Self-management Helen Pascual PA-C directed Note: This is an individualized [...] to be addressed on an ongoing basis. documented as of this encounter Results Not on filedocumented in this encounter Visit Diagnoses Diagnosis Cellulitis, unspecified cellulitis site - Primary documented in this encounter Insurance Payer Benefit Plan / Subscriber ID Effective Dates Phone Address Type Group [facility] xxxxxxxxxxx 2018-Present [employer] Guarantor Name Account Type Relation to Date of Phone Billing Patient Address Beth Arciniega Personal/Family 1990 [address] [phone] [place], [place] (Work) [address] documented as of this encounter
--- OUTSIDE RECORDS SUMMARY | 2019-01-24 18:36 | XMS REPORT | Continuity of Care Document ---
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 [phone] Problems Active Problems Provider Date Iron deficiency anemia Joan Locke PA-C Onset: 12/18/2018 Essential hypertension Joan Locke PA-C Onset: 12/18/2018 Asthma without status asthmaticus Joan Locke PA-C Onset: 2018 Social History Type Date Description Comments Sex Unknown Tobacco Use Start: Unknown Light tobacco smoker (10 or fewer cigarettes/day) Smoking Status Reviewed: 12/10/18 Light tobacco smoker (10 or fewer cigarettes/day) Allergies, Adverse Reactions, Alerts Active Allergies Reaction Severity Comments Date Keflex 12/10/2018 Doxycycline 12/10/2018 Wellbutrin 12/10/2018 Medications Active Medications SIG Qnty Indications Ordering Provider Date Vitamin D3 Take 1 Capsule By Unknown [id number] Mouth Once A Week Capsules Albuterol Sulfate HFA Inhale 2 Puffs By Unknown Mouth Every 4 108(90Base) mcg/Act Hours as Needed Aerosol For Wheezing Warfarin Sodium Take 1 Tablet By Unknown 10mg Mouth Once Daily Tablets as Directed Eq Nicotine Sha Tobias D.O. 21mg/24HR Patches 24HR Furosemide Take 1 Tablet By Unknown 40mg Tablets Mouth Twice Daily Iron 2 By Mouth Unknown 325(65Fe) mg Tablets Immunizations Description No Information Available Vital Signs Date Vital Result Comment 12/10/2018 2:49pm Height 67.5 inches 5'7.50" Weight 492.00 lb BP Systolic 163 mmHg BP Diastolic 100 mmHg Heart Rate 100 /min BMI (Body Mass Index) 75.9 kg/m2 Results Description No Information Available Procedures Description No Information Available Medical Devices Description No Information Available Encounters Description No Information Available Assessments Date Code Description Provider 12/10/2018 D50.9 Iron deficiency anemia, unspecified Joan Locke PA-C Plan of Treatment No Information Available Functional Status Description No Information Available Mental Status Description No Information Available Referrals Description No Information Available
== END 2019-01-24 18:33 | disposition home or self-care (01) ==
LOC: UCCORT 18:14
DX: R10.31 Right lower quadrant pain (principal); E66.9 Obesity, unspecified; F17.210 Nicotine dependence, cigarettes, uncomplicated; Z88.8 Allergy status to other drugs, medicaments and biological substances; Z88.1 Allergy status to other antibiotic agents; Z79.01 Long term (current) use of anticoagulants
CPT/HCPCS: 99212; G0463